=== PATIENT | female | born 1945 | race Caucasian/White ===

== ENCOUNTER → 2023-08-01 14:31 | Outpatient (REF) | payer MEDICARE, SELFPAY | LOC: WDC 14:31 | PROVIDERS: ATTENDING PHYSICIAN Internal Medicine Geriatric Medicine | DX: Z12.31 Encounter for screening mammogram for malignant neoplasm of breast (principal) | CPT/HCPCS: 77063; 77067 ==

== ENCOUNTER 2024-05-09 06:08 | Day surgery (SDC) | payer MEDICARE, SELFPAY ==
[2024-04-28 12:17] LABS: Hematocrit 41.5 % (37.0-47.0); Hemoglobin 13.6 g/dL (12.0-16.0); Mean Corp Hgb Conc. 32.8 g/dL (33.0-37.0); Mean Corpuscular Volume 91.6 fL (81.0-99.0); Mean Platelet Volume 9.7 fL (7.4-10.4); Platelet Count 360 10^3/uL (130-400); Red Blood Cell Count 4.53 10^6/uL (4.20-5.40); Red Cell Dist. Width 13.1 % (11.5-14.5); White Blood Cell Count 8.6 10^3/uL (4.8-10.8)
[2024-04-28 12:28] LABS: ALT (SGPT) 23 U/L (0-35); AST (SGOT) 27 U/L (14-36); Albumin 4.4 g/dl (3.5-5.0); Alkaline Phosphatase 68 U/L (38-126); Blood Urea Nitrogen 17 mg/dl (7-17); Calcium 10.4 mg/dl (8.4-10.2); Carbon Dioxide 30 mmol/L (22-30); Chloride 101 mmol/L (98-107); Glucose 70 mg/dl (70-99); Potassium 4.4 mmol/L (3.5-5.1); Sodium 139 mmol/L (135-145); Total Bilirubin 0.7 mg/dl (0.2-1.3); Total Protein 7.2 g/dl (6.3-8.2); eGFR > 60.00
[2024-04-28 12:38] LABS: Glycohemoglobin (HgbA1c) 5.3 % (4.0-5.6)
[2024-04-28 13:55] VITALS: BMI 31.3
[2024-04-28 15:31] VITALS: BMI 31.3
[2024-05-09] VITALS (9 sets, daily range): BP systolic 153–174; BP diastolic 59–100
[2024-05-09] MEDS: TYLENOL 1000 MG PO (06:37)
[2024-05-09] MEDS: CELEBREX 200 MG PO (06:37)
[2024-05-09] MEDS: NORMOSOL-R/PLASMALYTE-A 1000 IV (06:53)
[2024-05-09] MEDS: ZOFRAN 4 MG IV (09:36)
[2024-05-09] MEDS: ANCEF 5 IV (11:49)
== END 2024-05-09 12:20 | disposition home or self-care (01) ==
LOC: SDS 06:08
PROVIDERS: ATTENDING PHYSICIAN Specialist; FAMILY PHYSICIAN Internal Medicine Geriatric Medicine; OTHER PHYSICIAN Physician Assistant; REFERRING PHYSICIAN Internal Medicine Cardiovascular Disease
DX: M19.012 Primary osteoarthritis, left shoulder (principal)
CPT/HCPCS: 23472; C1713; C1776; 36415; 73020; 80053; 83036; 85027; 87070

== ENCOUNTER → 2024-06-19 11:06 | Outpatient (REF) | payer MEDICARE, SELFPAY ==
--- NOTE | 2024-06-19 15:23 | EEGC.RPT ---
Continuous EEG Report
Recording
Start Date of Data Reviewed: 06/19/24
End Date of Data Reviewed: 06/19/24
Done with Video Recording: Yes
Report
TECHNICAL REMARKS: This is a technically satisfactory eighteen channel record employing 21 disc electrodes applied according to a measured international 10-20 electrode placement system. There were no significant technical difficulties. The study
was done on a [employer] System.
CLINICAL HISTORY: This is a 78-year-old woman with suspected seizure. This study was requested to look for epileptiform activity.
MEDICATIONS: no AED
STUDY DURATION: 1 hour, 3 minutes
REPORT: At the onset of the EEG, the patient is awake. The background activity consists of 9.5-10 Hz, persistent, posteriorly dominant, moderate in amplitude, symmetric, and rhythmic activity that is reactive to eye-opening with admixed 10-15
microvolts delta activity. Frequent left frontotemporal slowing with rare sharp waves was seen. Stepwise intermittent photic stimulation (1-31 Hz) did not induce any additional abnormalities. Hyperventilation was not performed. Drowsiness is
characterized by low amplitude mixed frequency activity, decreased eye blinking, and muscle artifact. N2 sleep was reached
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
== END ==
LOC: EEG 11:06
PROVIDERS: ATTENDING PHYSICIAN Internal Medicine Geriatric Medicine
DX: G40.A09 Absence epileptic syndrome, not intractable, without status epilepticus (principal); Z00.00 Encounter for general adult medical examination without abnormal findings; I49.5 Sick sinus syndrome; I10 Essential (primary) hypertension; I48.91 Unspecified atrial fibrillation; E78.2 Mixed hyperlipidemia; E78.5 Hyperlipidemia, unspecified; E83.52 Hypercalcemia; G62.9 Polyneuropathy, unspecified; Z13.89 Encounter for screening for other disorder
CPT/HCPCS: 95813

== ENCOUNTER → 2024-06-27 14:20 | Outpatient (REF) | payer MEDICARE, SELFPAY | LOC: RAD 14:20 | PROVIDERS: ATTENDING PHYSICIAN Internal Medicine Geriatric Medicine; REFERRING PHYSICIAN Specialist | DX: I67.1 Cerebral aneurysm, nonruptured (principal) | CPT/HCPCS: 70496; Q9967 ==

== ENCOUNTER → 2024-08-01 11:25 | Outpatient (REF) | payer MEDICARE, SELFPAY | LOC: HWWDC 11:25 | PROVIDERS: ATTENDING PHYSICIAN Internal Medicine Geriatric Medicine | DX: Z12.31 Encounter for screening mammogram for malignant neoplasm of breast (principal) | CPT/HCPCS: 77063; 77067 ==